=== PATIENT | female | born 1960 | race Caucasian/White ===

== ENCOUNTER 2021-07-20 11:33 | Emergency (ER) | payer MEDICAID ==
[~2021-07-20] VITALS: Ht 160 cm; Wt 45.4 kg
[~2021-07-20 11:33] MED LIST: ABILIFY10 MG; AMOXICILLIN 50500 MG PO; CLARITIN10 MG; COLACE100 MG PO; DESYREL50 MG; DULCOLAX5 MG; HYDROXYZINE HCL25 M1; LISINOPRIL20 MG; PHENERGAN-CODE120 ML PO; PROAIR HFA8.5 GM; VICODIN ES TAB1 EACH PO; ZANTAC 150MG T150 M1 PO; ZOLOFT100 MG
[2021-07-20] MEDS ORDERED: NORVASC10 MG PO (11:52)
[2021-07-20] MEDS ORDERED: HYDROXYZINE PAM25 M1 PO (11:54)
[2021-07-20] MEDS ORDERED: VENTOLIN HFA 1818 GM INH (11:59)
[2021-07-20] MEDS ORDERED: PREDNISONE 20 M20 M1 PO (11:59)
[2021-07-20] MEDS ORDERED: ZPAK PO (12:27)
[2021-07-20 12:56] VITALS: BP 138/91
--- NOTE | 2021-07-20 14:27 | EKG ---
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 <ELECTRONICALLY SIGNED> By: Phil Aguilera MD, FACC 07/20/21 1427 1142 1142 Phil Aguilera MD, FAC /EPI
== END 2021-07-20 12:57 | disposition home or self-care (01) ==
LOC: M.ERS 11:33
DX: J44.1 Chronic obstructive pulmonary disease with (acute) exacerbation (principal); Z20.822 Contact with and (suspected) exposure to COVID-19; I10 Essential (primary) hypertension; F41.9 Anxiety disorder, unspecified; F17.210 Nicotine dependence, cigarettes, uncomplicated; Z79.899 Other long term (current) drug therapy; Z88.9 Allergy status to unspecified drugs, medicaments and biological substances

== ENCOUNTER 2021-10-29 14:28 | Emergency (ER) | payer MEDICAID ==
[~2021-10-29] VITALS: Ht 160 cm; Wt 49.9 kg
[~2021-10-29 14:28] MED LIST changes: +HYDROXYZINE PAM25 M1 PO; +NORVASC10 MG PO; +PREDNISONE 20 M20 M1 PO; +VENTOLIN HFA 1818 GM INH; +ZPAK PO
[2021-10-29 14:49] LABS: ABSOLUTE EOSINOPHILS 0.1 thou/uL (0.0-0.7); ABSOLUTE LYMPHOCYTES 1.4 thou/uL (0.8-5.3); ABSOLUTE MONOCYTES 0.4 thou/uL (0.0-1.2); BASOPHILS 0.7 %; EOSINOPHILS 1.9 %; HEMATOCRIT 38.2 % (37.0-47.0); HEMOGLOBIN 12.7 gm/dL (12.0-15.0); LYMPHOCYTES 23.1 %; MCHC 33.3 g/dL (28.0-37.0); MCV 93.3 fL (80.0-100.0); MONOCYTES 7.3 %; MPV 8.1 fl. (7.2-11.1); NUCLEATED RBCS 0 /100WBC; PLATELET COUNT* 217 thou/uL (150-400); RDW-CV 14.2 % (10.5-14.5)
[2021-10-29 15:00] LABS: CALCIUM 9.3 mg/dL (8.5-10.1); CREATININE 0.7 mg/dL (0.6-1.3); POTASSIUM 4.2 mmol/L (3.5-5.1)
[2021-10-29 15:11] LABS: ALBUMIN 3.9 g/dL (3.4-5.0); TOTAL BILIRUBIN 0.3 mg/dL (<0.1-1.0); TOTAL PROTEIN 7.9 g/dL (6.4-8.2)
[2021-10-29 16:22] VITALS: BP 134/85
--- NOTE | 2021-10-30 13:46 | EKG ---
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 : 1960 Requested By: Geoff Collier Order Number: [id number] MD: Chevy Montoya Measurements Intervals [place] Rate: 87 P: 63 SD: 153 QRS: 70 QRSD: 82 T: 84 QT: 344 QTc: 414 Interpretive Statements Sinus rhythm Probable left atrial enlargement Left ventricular hypertrophy ST elevation suggests early repolarization; pericarditis cannot be excluded Compared to ECG 07/20/2021 11:42:04 No significant changes Electronically Signed On 10-30-2021 13:46:12 PLAYER SERVICES REPRESENTATIVE by Chevy Montoya [email or web address] <ELECTRONICALLY SIGNED> By: Chevy Montoya MD, [facility] 10/30/21 1346 1432 1432 Chevy Montoya MD, [facility] /EPI
== END 2021-10-29 16:24 | disposition home or self-care (01) ==
LOC: M.ERS 14:28
PROVIDERS: Family Medicine
DX: R20.2 Paresthesia of skin (principal); F41.9 Anxiety disorder, unspecified; J44.9 Chronic obstructive pulmonary disease, unspecified; I10 Essential (primary) hypertension; F17.210 Nicotine dependence, cigarettes, uncomplicated; Z79.899 Other long term (current) drug therapy

== ENCOUNTER 2021-11-13 19:50 | Emergency (ER) | payer MEDICAID ==
[2021-11-13 21:49] VITALS: BP 0/0
== END 2021-11-13 21:51 | disposition left against medical advice (07) ==
LOC: M.ERS 19:50
DX: S99.922A Unspecified injury of left foot, initial encounter (principal); Z53.21 Procedure and treatment not carried out due to patient leaving prior to being seen by health care provider; X58.XXXA Exposure to other specified factors, initial encounter; Y93.89 Activity, other specified; Y92.89 Other specified places as the place of occurrence of the external cause; Y99.8 Other external cause status

== ENCOUNTER 2021-11-15 10:52 | Emergency (ER) | payer MEDICAID ==
[~2021-11-15] VITALS: Ht 160 cm; Wt 52.2 kg
[2021-11-15 11:55] VITALS: BP 147/87
== END 2021-11-15 11:55 | disposition home or self-care (01) ==
LOC: M.ERS 10:52
DX: S93.602A Unspecified sprain of left foot, initial encounter (principal); F31.9 Bipolar disorder, unspecified; F41.9 Anxiety disorder, unspecified; J44.9 Chronic obstructive pulmonary disease, unspecified; I10 Essential (primary) hypertension; F17.210 Nicotine dependence, cigarettes, uncomplicated; Z79.899 Other long term (current) drug therapy; Z88.8 Allergy status to other drugs, medicaments and biological substances; W07.XXXA Fall from chair, initial encounter; Y93.89 Activity, other specified; Y92.89 Other specified places as the place of occurrence of the external cause; Y99.8 Other external cause status